=== PATIENT | male | born 1950 | race Two or more races ===

== ENCOUNTER → 2020-09-17 15:00 | Outpatient (CLI) | payer OTHER | END | disposition home or self-care (01) | LOC: PPH VACUNA 15:00 | PROVIDERS: ATTEND Emergency Medicine Pediatric Emergency Medicine | DX: Z23 Encounter for immunization (principal) ==

== ENCOUNTER 2021-04-27 08:00 | Outpatient (CLI) | payer OTHER | END 2021-04-27 08:30 | disposition home or self-care (01) | LOC: PPH VACUNA 08:00 | PROVIDERS: ATTEND Emergency Medicine Pediatric Emergency Medicine | DX: Z23 Encounter for immunization (principal) ==

== ENCOUNTER → 2022-06-02 | Outpatient (CLI) | payer OTHER | END | disposition home or self-care (01) | LOC: ASH CLINIC 15:20 | PROVIDERS: ATTEND Emergency Medicine | DX: U07.1 COVID-19 (principal) ==

== ENCOUNTER 2024-02-13 11:20 | Outpatient (CLI) | payer OTHER ==
[~2024-02-13 11:20] MED LIST: ACTOS15 MG; ALTACE2.5 MG; ATORVASTATIN CA20 MG; GLUMETZA500 MG; HUMULIN N100 UNIT/2; HUMULIN R100 UNIT/1; ZOCOR40 MG
== END 2024-02-13 11:23 | disposition home or self-care (01) ==
LOC: RAD 11:20
PROVIDERS: ATTEND Orthopaedic Surgery
DX: S72.142D Displaced intertrochanteric fracture of left femur, subsequent encounter for closed fracture with routine healing (principal)